=== PATIENT | female | born 1985 | race Two or more races ===

== ENCOUNTER → 2024-08-30 | Emergency (ER) | payer OTHER ==
[~2024-08-30] VITALS: Ht 162.6 cm; Wt 52.2 kg
[~2024-08-30] MED LIST: ACETAMINOPHEN 500 MG GEL..CAP PO ONE; CEFADROXIL500 MG PO; DEXAMETHASONE SODIUM PHOSPHATE 4 MG/ML VIAL IM ONE; DEXAMETHASONE SODIUM PHOSPHATE 4 MG/ML VIAL ONE; KEFLEX500 MG PO; LEVSIN/SL0.125 MG SL; PEPCID40 MG PO; ZOFRAN4 MG PO
== END | disposition home or self-care (01) ==
LOC: ER 09:51
DX: J06.9 Acute upper respiratory infection, unspecified (principal); Z20.822 Contact with and (suspected) exposure to COVID-19